=== PATIENT | female | born 2000 | race Two or more races ===

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

== ENCOUNTER 2020-07-29 22:20 | Emergency (ER) | payer MEDICAID ==
[~2020-07-29] VITALS: Ht 180.3 cm; Wt 103.0 kg
[2020-07-29 22:23] VITALS: BP 132/54
--- NOTE | 2020-07-29 23:35 | NUR ---
This tech witnessed this pt state "I'm leaving" to the door screener. Pt proceeded to walk out of the door.
--- NOTE | 2020-07-29 23:49 | NUR ---
CALLED FOR PT. PT NOT IN LOBBY. PER EMT - PT WITNESSED LEAVING.
== END 2020-07-29 23:52 | disposition left against medical advice (07) ==
LOC: ED 23:45
DX: N39.0 Urinary tract infection, site not specified (principal); Z53.21 Procedure and treatment not carried out due to patient leaving prior to being seen by health care provider

== ENCOUNTER 2021-03-06 19:48 | Emergency (ER) | payer MEDICAID ==
[~2021-03-06] VITALS: Ht 177.8 cm; Wt 98.3 kg
[2021-03-06 20:30] LABS: BASOPHILS % (AUTO) 0 % (0-1); EOSINOPHILS % (AUTO) 0 % (1-7); LYMPHOCYTES % (AUTO) 14 % (22-44); MEAN CORPUSCULAR HEMOGLOBIN 29.7 pg (27.0-34.8); MEAN CORPUSCULAR HGB CONC 34.8 g/dL (32.4-35.8); MONOCYTES % (AUTO) 5 % (2-9); NEUTROPHILS % (AUTO) 81 % (42-75); PLATELET COUNT 253 x10^3/uL (130-400); RED BLOOD COUNT 4.85 x10^6/uL (3.82-5.3); RED CELL DISTRIBUTION WIDTH 13.4 % (9.6-15.2)
[2021-03-06] MEDS ORDERED: ACETAMINOPHEN 325 MG TABLET PO ONE (20:30)
[2021-03-06] MEDS ORDERED: KETOROLAC 30 MG/1 ML IM ONE (20:30)
[2021-03-06] MEDS ORDERED: KETOROLAC 30 MG/1 ML ONE (20:40)
[2021-03-06] MEDS ORDERED: ACETAMINOPHEN 325 MG TABLET ONE (20:40)
[2021-03-06 20:41] LABS: ALBUMIN 3.9 g/dL (3.4-5.0); ANION GAP 7 mmol/L (5-15); CALCIUM 8.9 mg/dL (8.5-10.1); CHLORIDE 105 mmol/L (98-107); CREATININE 0.85 mg/dL (0.55-1.02)
[2021-03-06 20:48] VITALS: BP 122/70
--- NOTE | 2021-03-06 20:50 | NUR ---
MEDICATED PER MAR PT IN NAD
[2021-03-06 20:58] LABS: MICROSCOPIC INDICATED
== END 2021-03-06 21:37 | disposition home or self-care (01) ==
LOC: ED 20:18
DX: N30.00 Acute cystitis without hematuria (principal); R00.0 Tachycardia, unspecified
CPT/HCPCS: 36415; 80048; 81001; 82040; 84703; 85025; 87077; 87086; 87186; 93005; 96372; 99284; J1885

== ENCOUNTER 2021-05-26 12:26 | Emergency (ER) | payer MEDICAID ==
[~2021-05-26] VITALS: Ht 177.8 cm; Wt 94.4 kg
--- NOTE | 2021-05-26 12:50 | NUR ---
Pt walked back to room with steady gait from [facility]. Rapid strep swab already done and sent in triage by PA. Awaiting results at this time.
[2021-05-26 13:48] VITALS: BP 116/73
== END 2021-05-26 14:00 | disposition home or self-care (01) ==
LOC: ED 13:51
DX: J02.9 Acute pharyngitis, unspecified (principal); F17.200 Nicotine dependence, unspecified, uncomplicated
CPT/HCPCS: 87081; 87880; 99283

== ENCOUNTER 2021-05-27 15:06 | Emergency (ER) | payer MEDICAID ==
--- NOTE | 2021-05-27 15:47 | NUR ---
CALLED FOR TRIAGE, NO ANSWER
--- NOTE | 2021-05-27 15:57 | NUR ---
CALLED FOR TRIAGE, NO ANSWER.
--- NOTE | 2021-05-27 16:22 | NUR ---
3RD CALL FOR TRIAGE, NO ANSWER. UNABLE TO LOCATE IN LOBBY.
== END 2021-05-27 16:25 | disposition left against medical advice (07) ==
LOC: ED 15:36
DX: R07.0 Pain in throat (principal); Z53.21 Procedure and treatment not carried out due to patient leaving prior to being seen by health care provider